=== PATIENT | female | born 1980 | race Caucasian/White ===

== ENCOUNTER → 2018-09-10 | Emergency (ER) | payer MEDICAID ==
[~2018-09-10] VITALS: Ht 170.2 cm; Wt 65.9 kg
[2018-09-10 15:59] LABS: BASOPHILS % (AUTO) 0.4 % (0-1); EOSINOPHILS # (AUTO) 0.1 X10'3 (0-0.9); EOSINOPHILS % (AUTO) 1.5 % (0-6); HEMATOCRIT 39.5 % (35.0-45.0); HEMOGLOBIN 13.5 g/dl (12.0-16.0); LYMPHOCYTES # (AUTO) 1.7 X10'3 (1.1-4.8); LYMPHOCYTES % (AUTO) 19.1 % (21-51); MEAN CORPUSCULAR HEMOGLOBIN 31.8 PG (27.0-31.0); MEAN CORPUSCULAR HGB CONC 34.2 % (33.0-36.5); MEAN CORPUSCULAR VOLUME 92.9 FL (78-98); MEAN PLATELET VOLUME 8.8 FL (7.4-10.4); MONOCYTES # (AUTO) 0.6 X10'3 (0-0.9); MONOCYTES % (AUTO) 6.4 % (2-12); NEUTROPHILS # (AUTO) 6.5 X10'3 (1.8-7.7); NEUTROPHILS % (AUTO) 72.6 % (42-75); PLATELET COUNT 244 X10'3 (140-440); RED BLOOD COUNT 4.25 X10'6 (4.20-5.60)
[2018-09-10 16:09] LABS: ALANINE AMINOTRANSFERASE 25 U/L (12-78); ALKALINE PHOSPHATASE 83 IU/L (46-116); ANION GAP 12 (8-16); ASPARTATE AMINO TRANSFERASE 16 U/L (10-37); BILIRUBIN,TOTAL 0.3 MG/DL (0.1-1.0); BLOOD UREA NITROGEN 8 MG/DL (7-18); BUN/CREATININE RATIO 11.9 (6.6-38.0); CALCIUM 9.2 MG/DL (8.5-10.1); CHLORIDE 100 MMOL/L (99-107); CREATININE 0.67 MG/DL (0.40-0.90); GLUCOSE 95 MG/DL (70-104); POTASSIUM 3.6 MMOL/L (3.5-5.1); SODIUM 137 MMOL/L (135-145); TOTAL CARBON DIOXIDE 25.4 MMOL/L (24-32); TOTAL PROTEIN 7.9 G/DL (6.4-8.2); eGFR > 90 ML/MIN
[2018-09-10 16:22] LABS: PARTIAL THROMBOPLASTIN TIME 28 SECONDS (22-32); PROTHROMBIN TIME 10.1 SECONDS (9.0-12.0)
[2018-09-10 16:42] VITALS: BP_DIAS 72
[2018-09-10 17:33] VITALS: BP_SYST 122
== END | disposition home or self-care (01) ==
LOC: ER 14:58
DX: R07.89 Other chest pain (principal); R53.83 Other fatigue; Z87.891 Personal history of nicotine dependence; Z88.5 Allergy status to narcotic agent
CPT/HCPCS: 36415; 71045; 80053; 84484; 85025; 85610; 85730; 93005; 99284

== ENCOUNTER 2025-03-29 19:59 | Emergency (ER) | payer MEDICAID ==
[~2025-03-29] VITALS: Ht 170.2 cm; Wt 83.0 kg
[2025-03-29 20:11] VITALS: TEMP 97.6
[2025-03-29 20:34] LABS: BASOPHILS # (AUTO) 0.1 X10'3 (0-0.2); BASOPHILS % (AUTO) 0.8 % (0-1); EOSINOPHILS # (AUTO) 0.2 X10'3 (0-0.9); EOSINOPHILS % (AUTO) 1.7 % (0-6); HEMATOCRIT 42.5 % (35.0-45.0); HEMOGLOBIN 14.2 g/dl (12.0-16.0); LYMPHOCYTES # (AUTO) 2.6 X10'3 (1.1-4.8); LYMPHOCYTES % (AUTO) 27.7 % (21-51); MEAN CORPUSCULAR HEMOGLOBIN 30.8 PG (27.0-31.0); MEAN CORPUSCULAR HGB CONC 33.5 g/dL (33.0-36.5); MEAN CORPUSCULAR VOLUME 91.9 FL (78-98); MEAN PLATELET VOLUME 8.6 FL (7.4-10.4); MONOCYTES # (AUTO) 0.7 X10'3 (0-0.9); MONOCYTES % (AUTO) 7.2 % (2-12); NEUTROPHILS # (AUTO) 5.9 X10'3 (1.8-7.7); NEUTROPHILS % (AUTO) 62.6 % (42-75); PLATELET COUNT 287 X10'3 (140-440); RED BLOOD COUNT 4.63 X10'6 (4.20-5.60); RED CELL DISTRIBUTION WIDTH 13.9 % (11.5-14.5); WHITE BLOOD COUNT 9.5 X10'3 (4.5-11.0)
[2025-03-29 20:45] LABS: ALANINE AMINOTRANSFERASE 48 U/L (12-78); ALBUMIN 3.8 G/DL (3.4-5.0); ALBUMIN/GLOBULIN RATIO 0.9 (1.1-1.5); ALKALINE PHOSPHATASE 152 IU/L (46-116); ANION GAP 5 (8-16); ASPARTATE AMINO TRANSFERASE 25 U/L (10-37); BILIRUBIN,TOTAL 0.3 MG/DL (0.1-1.0); BLOOD UREA NITROGEN 9 MG/DL (7-18); BUN/CREATININE RATIO 11.5 (10.0-20.0); CALCIUM 8.8 MG/DL (8.5-10.1); CHLORIDE 103 MMOL/L (99-107); CREATININE 0.78 MG/DL (0.40-0.90); GLUCOSE 104 MG/DL (70-104); LIPASE 59 U/L (16-77); SODIUM 137 MMOL/L (135-145); TOTAL CARBON DIOXIDE 28.7 MMOL/L (24-32); TOTAL PROTEIN 7.9 G/DL (6.4-8.2); eCRCL 89 ML/MIN; eGFR 80 ML/MIN
--- NOTE | 2025-03-29 21:56 | Physician Documentation ---
History of Present Illness Chief Complaint: Abdominal Pain w/vomiting Stated Complaint: ABDOMINAL PAIN Primary Medical Doctor: none HPI Patient presents to the emergency room with abdominal pain and vomiting. Symptoms initially began three days ago when she ate some seafood and [facility] and 20 minutes later she began having significant vomiting without diarrhea. Symptoms have resolved by that morning she had three days of no symptoms until they returned tonight. She also states that three days ago she took a bunch of antacids. She describes the pain is burning in nature. She does have an umbilical hernia in his hurting as well but no more than the rest of her abdomen. Currently she is endorsing pain described as burning in nature and diffuse upper abdomen. No prior abdominal surgeries. She took some omeprazole today with no relief. No fevers or diarrhea currently Medication Reconciliation Allergies: Coded Allergies: codeine (Verified Allergy, Intermediate, nausea, vomiting, 05/25/13) Past Medical History Past Medical History: No Pertinent History Past Surgical History: no surgical history Alcohol Use: None Drug Use: none Lives with: Family Lives In: Home Occupation: employed Review of Systems ROS All review of systems negative except as per HPI Physical Exam Vital Signs: Temperature: 97.6, Source: Oral, Heart Rate: 76, Respiratory Rate: 16, BP: 158/96, Pulse Oximetry: 99, Weight: 83.000 Oxygen Flow Rate: 0 Physical Exam General: Patient is awake, alert, oriented x4 in no acute distress Head: Normocephalic and atraumatic. Eyes: Conjunctival normal. EOMI. PERRL. ENT: Mucous membranes moist. Neck: Supple, trachea is midline. Chest: Clear to auscultation bilaterally without rales, rhonchi, or wheezes. There is no accessory muscle use or retractions. Cardiac: RRR without murmurs, gallops, or rubs. Abd: Soft, nondistended, positive diffuse tenderness to palpation without peritonitis. Noted umbilical hernia that is not firm to touch Progress Results/Orders Results/Orders Vital Signs 03/29/25 20:11 Temp 97.6 Pulse 76 Resp 16 B/P (MAP) 158/96 Pulse Ox 99 O2 Flow Rate 0 Laboratory Tests Test 03/29/25 20:24 White Blood Count 9.5 Red Blood Count 4.63 Hemoglobin 14.2 Hematocrit 42.5 Mean Corpuscular Volume 91.9 Mean Corpuscular Hemoglobin 30.8 Mean Corpuscular Hemoglobin Concent 33.5 Red Cell Distribution Width 13.9 Platelet Count 287 Mean Platelet Volume 8.6 Neutrophils (%) (Auto) 62.6 Lymphocytes (%) (Auto) 27.7 Monocytes (%) (Auto) 7.2 Eosinophils (%) (Auto) 1.7 Basophils (%) (Auto) 0.8 Neutrophils # (Auto) 5.9 Lymphocytes # (Auto) 2.6 Monocytes # (Auto) 0.7 Eosinophils # (Auto) 0.2 Basophils # (Auto) 0.1 CBC Comment Sodium Level 137 Potassium Level 4.0 Chloride Level 103 Carbon Dioxide Level 28.7 Anion Gap 5 L Blood Urea Nitrogen 9 Creatinine 0.78 Estimated GFR/1.73 m2 80 BUN/Creatinine Ratio 11.5 Glucose Level 104 Calcium Level 8.8 Total Bilirubin 0.3 Aspartate Amino Transf (AST/SGOT) 25 Alanine Aminotransferase (ALT/SGPT) 48 Alkaline Phosphatase 152 H Total Protein 7.9 Albumin 3.8 Globulin 4.1 Albumin/Globulin Ratio 0.9 L Lipase 59 Chemistry Comments Medical Decision Making Findings Patient presents to the emergency room for evaluation of abdominal pain as per HPI. Differentials include but are not limited to gastritis, cholecystitis, diverticulitis, pancreatitis, incarcerated hernia therefore emergent labs indicated which was reassuring. Patient had complete resolution of symptoms status post GI cocktail in his feeling much better and smiling. Had long discussion with patient regarding reflux in the difference between H2 blockers and proton pump inhibitors. We will give her some additional Zofran. ER precautions discussed. I do not believe she is suffering from incarcerated hernia. Offered prescription for Pepcid and omeprazole but she states she has plenty at home Departure Disposition: HOME / SELF CARE / HOMELESS Impression: Primary Impression: Acute gastritis Condition: Improved Discharge Instructions: Gastritis, Adult Referrals: NO PRIMARY CARE PROVIDER (PCP) Prescriptions Ondansetron 8mg ODT (Ondansetron Odt) 8 Mg Tab.rapdis 1 TAB PO Q6H for nausea/vomiting for 3 Days, #12 TAB 0 Refills Prov: DEO FORTE MD 03/29/25 Additional Comment Medical Screen Exam History: This 45-year-old female presents with four days of lower abdominal pain following two days of severe nausea and vomiting after eating seafood. Patient reports she is scheduled to have hernia repair surgery for abdominal hernia. Patient reports no fever or diarrhea. Patient reports last bowel movement was today and very small. Exam: VITALS: Reviewed and as above. GENERAL: Alert, nontoxic appearing, no apparent distress. RESPIRATORY: No increased work of breathing, no respiratory distress, speaking in full clear sentences GI: Nondistended, no ecchymosis MSE performed in triage and patient returned to ED lobby by nursing staff The note accurately reflects work and decisions made by me.ERI Herrera 03/29/25 21:56 Signature Scribe Signature: No scribe Attestation: The note accurately reflects work and decisions made by me.Deo Forte MD 03/29/25 23:52 CHRISTOPHER MEDINA Mar 29, 2025 21:56 DEO FORTE MD Mar 29, 2025 22:39
[2025-03-29 22:01] VITALS: BP 171/95; PULSE 85; O2SAT 98
[2025-03-29] MEDS: ondansetron 4mg rapidly disintigrating tab PO ONE (23:15)
[2025-03-29] MEDS: famotidine 20mg tablet PO ONE (23:16)
[2025-03-29] MEDS: mag hydrox/Alum hydrox/simeth 30ml oral suspension PO ONE (23:17)
[2025-03-29] MEDS: LIDOcaine 2% Viscous 15ml cup MM ONE (23:17)
[2025-03-29 23:20] LABS: HCG SERUM QL NEGATIVE
[2025-03-29 23:24] VITALS: RESP 17
[2025-03-29 23:32] LABS: URINE HCG NEGATIVE (NEG)
[2025-03-29 23:33] LABS: BILIRUBIN,URINE NEGATIVE (Neg); CLARITY,URINE CLEAR (Clear); COLOR,URINE YELLOW (Yellow); GLUCOSE, URINE NEGATIVE (Neg); KETONES,URINE NEGATIVE (Neg); LEUKOCYTE ESTERASE ,URINE NEGATIVE (Neg); NITRITES, URINE NEGATIVE (Neg); OCCULT BLOOD,URINE TRACE-INTACT (Neg); PROTEIN,URINE NEGATIVE (Neg); UROBILINOGEN,URINE 0.2 E.U/dL (0.2-1.0)
[2025-03-29 23:38] LABS: UA COLLECTION TYPE CLN CATCH MIDSTREAM
[2025-03-29 23:42] LABS: BACTERIA,URINE FEW /HPF (Neg); MUCUS STRANDS FEW /LPF (Neg); SQUAMOUS EPITHELIAL CELL,UR MANY /LPF (FEW)
[2025-03-29] MEDS ORDERED: ONDA-245 PO (23:52)
== END 2025-03-30 00:10 | disposition home or self-care (01) ==
LOC: ER 20:00
DX: K29.00 Acute gastritis without bleeding (principal); Z88.5 Allergy status to narcotic agent
CPT/HCPCS: 36415; 80053; 81001; 81025; 83690; 84703; 85025; 99284

== ENCOUNTER 2025-04-20 05:28 | Day surgery (SDC) | payer MEDICAID ==
[2025-04-13 12:08] LABS: MEAN PLATELET VOLUME 8.9 FL (7.4-10.4); PRE OP HEMATOCRIT 44.5 % (35.0-45.0); PRE OP HEMOGLOBIN 14.9 g/dL (12.0-16.0); PRE OP PLATELET COUNT 332 X10'3 (140-440); PRE OP WHITE BLOOD COUNT 7.5 10'3 (4.8-10.8); RED CELL DISTRIBUTION WIDTH 13.5 % (11.5-14.5)
[2025-04-13 12:18] LABS: CREATININE 0.71 MG/DL (0.40-0.90); PRE OP ANION GAP 8 (8-16); PRE OP AST 43 U/L (10-37); PRE OP BILIRUB, TOTAL 0.5 MG/DL (0.0-1.0); PRE OP GLUCOSE 87 MG/DL (70-104); PRE OP POTASSIUM 4.2 MMOL/L (3.4-5.1); PRE OP SODIUM 137 MMOL/L (135-145); TOTAL CARBON DIOXIDE 27.1 MMOL/L (24-32); eGFR 89 ML/MIN
[2025-04-13 12:19] LABS: PRE OP ALT 83 U/L (30-65)
[2025-04-13 12:31] LABS: HCG SERUM QL NEGATIVE
[~2025-04-20] VITALS: Ht 170.2 cm; Wt 80.5 kg
[2025-04-20] VITALS (9 sets, daily range): BP systolic 113–136; BP diastolic 74–88; PULSE 87–104; RESP 10–19; TEMP 98; O2SAT 94–99
[~2025-04-20 05:28] MED LIST: BLAC4.5O PO; BLAC540C4 PO; FAMO-129 PO; MULT-1085 PO; NAPR220C62 PO; OMEP20CA16 PO; RED500CA PO; WOMENS PROBIOTIC PO
[2025-04-20] MEDS ORDERED: ringers solution, lacted 1,000 ML IV SCH ×2 (05:30→08:10)
[2025-04-20] MEDS: ceFAZolin 2gm/dext,iso 50mL 50 ML IV ONE (05:47)
[2025-04-20] MEDS ORDERED: BUPIVACAINE liposomal/PF 13.3 MG/ML 10mL vial IM ONE (06:53)
[2025-04-20] MEDS ORDERED: LIDOcaine 1% 30ml preserv. free vial ONE (06:53)
[2025-04-20] MEDS ORDERED: BUPIVAcaine 2.5mg/ml inj 50ml vial (contains preservative) ONE (06:53)
[2025-04-20] MEDS ORDERED: BUPIVAcaine/PF 2.5mg/ml (0.25%) 10ml vial ONE (06:53)
[2025-04-20] MEDS ORDERED: fentaNYL/PF 50MCG/1 ML 2ML syringe ONE ×2 (07:16→07:50)
[2025-04-20] MEDS ORDERED: midazolam 1 mg/ML 2ml injection ONE (07:16)
[2025-04-20] MEDS ORDERED: acetaminophen 1,000mg/100ml IV 100 ML IV ONE ×3 (07:17→07:18)
[2025-04-20] MEDS ORDERED: propofol inj 20 ML IV ONE (07:18)
[2025-04-20] MEDS ORDERED: glycopyrrolate 0.2mg/ml inj ONE (07:18)
[2025-04-20] MEDS ORDERED: LIDOcaine 2% (20mg/ml) 5ml vial ONE (07:19)
[2025-04-20] MEDS ORDERED: rocuronium 10mg/ml inj IV ONE (07:19)
[2025-04-20] MEDS ORDERED: ondansetron/PF 4mg/2ml inj ONE (07:19)
[2025-04-20] MEDS ORDERED: dexamethasone sod phosphate 4mg/ml inj. ONE (07:19)
--- NOTE | 2025-04-20 07:19 | HISTORY AND PHYSICAL ---
History & Physical Providers to CC CC: CHRISTOPHER GARCIA MD ~ History of Present Illness Reason for Admit\Complaint: Umbilical hernia History of Present Illness This is an interval history and physical exam Patient is here today for elective repair of her umbilical hernia She was seen in the office a few months ago but denies any change in her past medical history (please see previous history and physical exam for all pertinent details) She is scheduled for robotic assisted, laparoscopic umbilical hernia repair with mesh Allergies: Coded Allergies: codeine (Verified Allergy, Intermediate, nausea, vomiting, 05/25/13) Home Medications Home Medications Active Reported Naproxen Sodium 220 Mg Capsule 1 Cap PO Q12H PRN 30 Days Omeprazole 20 Mg Capsule.dr 1 Cap PO DAILY 30 Days Multi Vitamin Daily (Multivitamin) 1 Each Tablet 1 Tab PO DAILY 30 Days Black Seed 4.5 Gram/5 Ml Oil 2 Cap PO HS Pepcid (Famotidine) 20 Mg Tablet 1 Tab PO DAILY PRN [Womens probiotic] 1 Cap PO HS Black Cohosh 540 Mg Capsule 1 Tab PO HS Beet Root (Red Beet) 500 Mg Capsule 1 Tab PO HS ROS ROS Reviewed and negative Exam Vitals: Vital Signs Date Time Temp Pulse Resp B/P (MAP) Pulse Ox O2 Delivery O2 Flow Rate FiO2 04/20/25 05:37 98.0 87 16 136/88 (104) 99 Room Air General: 45-year-old female in no acute distress Chest: Lungs clear to auscultation bilaterally Cardiovascular: Regular rate and rhythm without murmur Abdomen: Soft and nondistended Umbilical hernia Problems: (1) Umbilical hernia Assessment & Plan: The risks, benefits, and alternatives to a robotic assisted, laparoscopic umbilical hernia repair with mesh were discussed with the patient. Risks include, but are not limited to, bleeding, infection, injury to intra- abdominal structures, hernia recurrence and chronic postoperative pain. Patient verbalized understanding and wishes to proceed with surgery. We will do so today as scheduled CHRISTOPHER GARCIA MD Apr 20, 2025 07:19
[2025-04-20] MEDS: BUPIVAcaine/PF 2.5 mg/ml (0.25%) 30ml vial IJ ONE (07:42)
[2025-04-20] MEDS ORDERED: desflurane 240ml liquid inh. IH ONE (07:46)
[2025-04-20] MEDS ORDERED: ondansetron/PF 4mg/2ml inj IV PRN (08:10)
[2025-04-20] MEDS ORDERED: fentaNYL/PF 50MCG/1 ML 2ML syringe IV PRN ×2 (08:10)
[2025-04-20] MEDS ORDERED: hydrALAZINE 20mg/ml inj. IV PRN (08:10)
[2025-04-20] MEDS ORDERED: morphine 4 MG/ML inj SYRINge IV PRN (08:10)
[2025-04-20] MEDS ORDERED: labetalol 20mg/4ml (5mg/ml) syringe IV PRN (08:10)
[2025-04-20] MEDS ORDERED: ketorolac trometh 30MG/ML vial 30 MG/ML VIAL ONE (08:30)
[2025-04-20] MEDS ORDERED: ondansetron 4mg rapidly disintigrating tab PO PRN (08:55)
--- NOTE | 2025-04-20 09:01 | OPERATIVE REPORT ---
Operative Report Providers to CC: DADA GARCIA MD ~ Date of Procedure: Apr 20, 2025 Pre-Operative Diagnosis: Umbilical hernia Post-Operative Diagnosis SAME as PRE-Op Procedure Performed Robotic assisted, laparoscopic 3 cm umbilical hernia repair with mesh Bilateral transversus abdominis plane nerve blocks by injection using 266 mg of Exparel Surgeon: Dada Garcia MD FACS [employer] None Anesthesiologist: Jag Will Type of Anesthesia: General Findings: 3 cm umbilical hernia defect with herniated preperitoneal fat Wound Class I Complications None Prosthetics\Implants used: 12 cm diameter coated polyester mesh Estimated Blood Loss: Minimal Specimen Removed: None Description of Procedure: Patient was brought to the operating room and identified by the nursing staff and the attending physician. Patient was placed supine and a general anesthesia was induced. Preoperative antibiotics were given. The abdomen was prepped and draped in the standard sterile fashion. Through a left subcostal stab incision the abdomen was accessed with a Veress needle technique. Abdomen was insufflated without incident. The incision was lengthened to accommodate a 12 mm optical trocar and the abdomen was entered under laparoscopic visualization. The abdomen was surveyed laparoscopically. Indentation of the peritoneum and proximal falciform ligament was noted at the level of the umbilicus. Under laparoscopic visualization, robotic trochars were placed in the left lateral and left lower quadrant. The da Felisha robotic arm was docked to the patient and instruments guided intra-abdominally under laparoscopic visualization. Peritoneal rent was created just lateral to the umbilicus. Mobilization was continued in the preperitoneal space until a fascial defect was encountered. There was a moderate amount of herniated preperitoneal fat within the umbilical hernia space. This was mobilized and reduced. Falciform ligament with the attached herniated preperitoneal fat was mobilized superiorly to allow adequate space for mesh deployment. The same was done for the infraumbilical fat pad. Defect measured 3 cm in diameter. Fascial defect(s) were then reapproximated with running, nonabsorbable, 0V lock suture. Good fascial apposition was obtained without significant tension. A coated polyester mesh was then fixed to the anterior abdominal wall with running, absorbable, 2/0, V lock suture. Mesh laid without wrinkles or folds. The mesh measured 12 cm in diameter The da Felisha instruments were then removed and the robot undocked from the patient. Bilateral transversus abdominis plane nerve blocks by injection were then placed under laparoscopic visualization using a combination of Marcaine and 266 mg of Exparel. The left subcostal trocar was removed and its fascia closed percutaneously with 0 Vicryl suture under laparoscopic visualization. Remaining trochars were removed after the abdomen was allowed to deflate. Skin was closed at all sites with 4-0 Monocryl sutures and dressed with sterile dressings. Patient was awakened and taken to the postanesthesia care unit in stable condition. Counts repoted as correct: Yes DADA GARCIA MD Apr 20, 2025 09:01
[2025-04-20] MEDS: oxyCODONE/APAP 5-325mg tablet PO PRN (09:49)
== END 2025-04-20 10:09 | disposition home or self-care (01) ==
LOC: PAS 05:28
PROVIDERS: ATTEND Surgery
DX: K42.9 Umbilical hernia without obstruction or gangrene (principal); K21.9 Gastro-esophageal reflux disease without esophagitis; G89.18 Other acute postprocedural pain; Z88.6 Allergy status to analgesic agent; Z88.8 Allergy status to other drugs, medicaments and biological substances; Z79.899 Other long term (current) drug therapy; Z98.890 Other specified postprocedural states
CPT/HCPCS: 36415; 49593; 64488; 80053; 82948; 84703; 85025; C1781; J0131; J0666; J1100; J1885; J2003; J2250; J2405; J2704; J2710; J3010; J3490; J7030; J7120; Z7506; Z7508; Z7512; A4215; A4618